=== PATIENT | male | born 1945 | race Caucasian/White ===

== ENCOUNTER 2018-08-11 19:33 | Observation (INO) ==
[2018-08-11] MEDS ORDERED: Ipratropium/Albuterol Neb 3 ML IH ONE (19:49)
[2018-08-11] MEDS ORDERED: methylPREDNISolone 125 MG/2 ML VIAL IVP ONE (19:50)
--- NOTE | 2018-08-11 19:51 | Emergency Department Note ---
Disposition Clinical Impression: COPD exacerbation, Elevated troponin Congestive heart failure Qualifiers: Heart failure type: unspecified Heart failure chronicity: unspecified Qualified Code(s): I50.9 - Heart failure, unspecified Community acquired pneumonia Qualifiers: Laterality: left Lung location: unspecified part of lung Qualified Code(s): J18.9 - Pneumonia, unspecified organism Disposition: Admitted As Inpatient Condition: Fair Referrals: NONE,PCP [Primary Care Provider] - Forms: ED Satisfaction Letter Time of Disposition: 20:37 SOB HPI - General Chief Complaint: ED Shortness of Breath/Dyspnea Stated Complaint: MOISÉS Time Seen by Provider: 08/11/18 19:39 Source: patient Mode of arrival: ambulatory Limitations: no limitations Nursing Notes Reviewed: Yes Vital Signs Reviewed: Yes - History of Present Illness 73-year-old male history of COPD and CHF presents to the emergency department with difficulty breathing. States over the past 2 days worsening shortness of breath especially on exertion. Laying flat makes it worse as well. Denies any chest pain. Reports productive yellow sputum. Denies fever. He is also noted a significant leg swelling past the knee. He was recently evaluated by myself a week ago for right leg swelling and was negative for deep vein thrombosis. He attempted to call his manager ent today but would not be evaluated until later in the week. He admits to smoking still. He does not take a diuretic he reports. He does not wear home oxygen. No history of cardiac ischemic disease. Pt Subjective Complaint: shortness of breath - Related Data Previous Rx's Medication Instructions Recorded Aspirin Enteric Coated [Aspirin EC] 81 mg PO DAILY #30 03/30/17 Azithromycin [Zithromax] 250 mg PO DAILY #5 tablet 07/11/18 Cefuroxime PO [Ceftin] 500 mg PO Q12HR #10 tablet 07/11/18 Lactobacillus [Culturelle] 1 each PO BID #10 cap.sprink 07/11/18 predniSONE [PredniSONE] 10 mg PO BIDWM #10 tablet 07/11/18 Allergies Allergy/AdvReac Type Severity Reaction Status Date / Time No Known Allergies Allergy Verified 11/12/17 19:49 All systems ED: reviewed and negative except as stated. Review of Systems: As Per HPI Constitutional: Denies: fever, chills ENT ED: Denies: congestion Cardiovascular: Denies: chest pain Respiratory: Reports: cough, dyspnea Gastrointestinal: Denies: abdominal pain, nausea, vomiting Genitourinary: Denies: dysuria Musculoskeletal: Denies: back pain Integumentary: Denies: rash, abrasion Neurological: Denies: weakness, numbness, abnormal gait Past Medical History - Past Medical History Attestation: Yes The following information was validated with the patient. Source: patient Medical history: Reports: cancer, CHF, COPD Surgical history: Reports: orthopedic, other, other Psychiatric history: Reports: no psych history - Social History Smoking Status: Current every day smoker Smokeless Tobacco Status: No Alcohol use: Reports: occasionally Drug use: Reports: none Physical Exam - General Limitations: no limitations General appearance: alert, in distress (Conversational dyspnea) - Head Head exam: atraumatic, normocephalic, normal inspection - Eye Eye exam: Present: normal appearance, PERRL, EOMI - ENT ENT exam: normal exam, normal oropharynx, mucous membranes moist - Neck Neck exam: Present: normal inspection, full ROM, trachea midline - Chest Chest inspection: Present: normal inspection, symmetric chest wall rise - Respiratory Respiratory exam: Present: wheezes (Bilateral), prolonged expiratory phase. Absent: respiratory distress - Cardiovascular Cardiovascular exam: Present: normal rhythm, tachycardia, normal heart sounds - Expanded Cardiovascular Exam Peripheral pulses: 2+: radial (R), radial (L) - Abdominal Exam Abdominal exam: Present: soft, Non-Tender, normal bowel sounds. Absent: tenderness, distention, guarding, rebound, rigidity - Extremities Exam Extremities exam: Present: normal inspection, full ROM, pedal edema (Bilateral, right greater than left). Absent: tenderness - Back Exam Back exam: Present: normal inspection, full ROM. Absent: tenderness - Neurological Exam Neurological exam: Present: alert, oriented X3 - Psychiatric Psychiatric exam: Present: normal affect, normal mood - Skin Skin exam: Present: warm, dry, intact, normal color. Absent: rash, cyanosis, diaphoresis Course Course Narrative: Patient presents with difficulty breathing worse of the past 2 days. Reports history of COPD and CHF. On examination he appears in some mild respiratory distress with bilateral wheezing, expiratory. He is tachycardic 111 at 94% on room air. He does not wear home oxygen supplementation. He does have swelling to his legs and was recently evaluated venous Doppler ultrasound, negative. Will Mr. breathing treatments and evaluate for CHF versus COPD. Patient will likely require admission. LE Venous Duplex Patient Name: Praveen Jurado Order Number: [id number] Procedure Date: 08/05/2018 Date: 1945 Age: 73 yrs Gender: Male Location: [facility] Room #: 9 Circulation Man: Gemini Weems Referring MD: DO Sue Mueller MD: Handy Mena MD Primary Indications: Rule out DVT Secondary Indications: Risk Factors Yes/No Anticoagulants No Hx of DVT Yes Hx of Chemotherapy No Recent Surgery No Previous Vascular Surgery No Hormone Replacement Therapy No Impressions: Right lower extremity: normal superficial and deep exam. Recommendations: Test completed on 08/05/2018 at 9:52:38 pm. Critical findings reported to Dr. Ramachandran in person at 9:52:44 pm on 08/05/2018 by Gemini Weems. Findings Venous Duplex Results: Right: Venous imaging of the lower extremity reveals full patency and normal vessel compressibility of the right distal iliac, right common femoral, right superficial femoral, right popliteal, right posterior tibial, right peroneal, right great saphenous and right lesser saphenous. Doppler signals in the evaluated veins were normal. The right peroneal vein was not well visualized. Left: Venous imaging of the lower extremity reveals full patency and normal vessel compressibility of the left common femoral. Doppler signals in the evaluated veins were normal. Prior Study: No prior study available for comparison. Test completed on 08/05/2018 at 9:52:38 pm. Critical findings reported to Dr. Ramachandran in person at 9:52:44 pm on 08/05/2018 by Gemini Weems. - Reevaluation(s) Reevaluation #1: Review of patient's labs, white count 6, lactate 0.9, BNP significantly elevated 1900. Review of his chest x-ray shows left upper lobe opacity concern for possible pneumonia as well as a vascular congestion. Will treat him for COPD exacerbation, likely CHF exacerbation and community acquired pneumonia as he was only hospitalized less than 48 hours. Ceftriaxone and azithromycin. His troponin is elevated at 0.05, suspect likely demand ischemia from his heart failure. Will hold off on heparinization at this time but will give him aspirin. Time: 20:33 - Consultations Consultation #1: Spoke with on-call hospitalist stanislav Waddell to admit for COPD exacerbation, CHF exacerbation, elevated troponin likely demand ischemia, pneumonia. No furthe r orders at this time. He should not appears significantly more comfortable after breathing treatments however continues to be 93% on room air. Time: 21:26 Vital Signs Temperature 98.1 F 08/11/18 19:39 Pulse Rate 111 08/11/18 19:39 Respiratory Rate 20 08/11/18 19:39 Blood Pressure 127/78 08/11/18 19:39 O2 Sat by Pulse Oximetry 94 08/11/18 19:39 Temperature 98.1 F 08/11/18 19:55 Pulse Rate 100 08/11/18 21:17 Respiratory Rate 22 08/11/18 21:17 Blood Pressure 110/74 08/11/18 21:17 O2 Sat by Pulse Oximetry 92 08/11/18 21:17 Oxygen Delivery Oxygen Delivery Room Air Shortness of Breath/Dyspnea - MDM Narrative Medical decision making narrative: Patient was discussed with my attending physician who agrees with ED management and final disposition. They independently evaluated the patient. Please refer to their attestation to this encounter for additional information. This note was generated by [employer] voice recognition software and as a result grammatical or spelling errors may occur using this program. - Medical Records Medical records reviewed: Yes I reviewed the patient's medical records. Review of echocardiogram performed 2016 showed EF 40% - Lab Data Lab results reviewed: Yes I reviewed the patient's lab results. Result diagrams: 08/11/18 19:44 08/11/18 19:44 Lab Results 08/11/18 08/11/18 08/11/18 Range/Units 19:44 19:44 19:44 WBC 6.5 (4.3-11.1) K/mcL RBC 3.93 L (4.19-5.50) M/mcL Hgb 13.3 (12.9-16.9) g/dL Hct 42.1 (37.5-50.1) % MCV 107.1 H (83.0-100.0) fL MCH 33.8 H (28.0-33.3) pg MCHC 31.6 (31.6-35.5) g/dL RDW 15.6 H (11.5-14.5) % Plt Count 225 (140-400) K/mcL MPV 9.6 (9.4-12.4) fL Immature Gran % 0.3 (0-4) % Seg Neutrophils % 78.0 % Lymphocytes % 9.9 % Monocytes % 9.3 % Eosinophils % 2.2 % Basophils % 0.3 % Neutrophils # 5.0 (1.6-8.9) K/mcL Lymphocytes # 0.6 (0.6-4.6) K/mcL Monocytes # 0.6 (0.0-1.3) K/mcL Eosinophils # 0.1 (0.0-0.6) K/mcL Basophils # 0.0 (0.0-0.2) K/mcL Sodium 143 (136-145) mEq/L Potassium 4.5 (3.5-5.1) mEq/L Chloride 108 H (98-107) mEq/L Carbon Dioxide 30 H (23-29) mEq/L BUN 27 H (8-23) mg/dL Creatinine 1.16 (0.70-1.30) mg/dL Est GFR ( Amer) > 60 (> 60) Est GFR (Non-Af Amer) > 60 (> 60) BUN/Creatinine Ratio 23 (6-26) Glucose 97 (70-105) mg/dL Calculated Osmolality 301 H (280-300) Lactic Acid (0.5-2.2) mmol/L Calcium 9.5 (8.6-10.3) mg/dL Troponin I 0.05 H* (< 0.04) ng/mL B-Natriuretic Peptide 1910 H (Less than 100) pg/mL 08/11/18 Range/Units 19:54 WBC (4.3-11.1) K/mcL RBC (4.19-5.50) M/mcL Hgb (12.9-16.9) g/dL Hct (37.5-50.1) % MCV (83.0-100.0) fL MCH (28.0-33.3) pg MCHC (31.6-35.5) g/dL RDW (11.5-14.5) % Plt Count (140-400) K/mcL MPV (9.4-12.4) fL Immature Gran % (0-4) % Seg Neutrophils % % Lymphocytes % % Monocytes % % Eosinophils % % Basophils % % Neutrophils # (1.6-8.9) K/mcL Lymphocytes # (0.6-4.6) K/mcL Monocytes # (0.0-1.3) K/mcL Eosinophils # (0.0-0.6) K/mcL Basophils # (0.0-0.2) K/mcL Sodium (136-145) mEq/L Potassium (3.5-5.1) mEq/L Chloride (98-107) mEq/L Carbon Dioxide (23-29) mEq/L BUN (8-23) mg/dL Creatinine (0.70-1.30) mg/dL Est GFR ( Amer) (> 60) Est GFR (Non-Af Amer) (> 60) BUN/Creatinine Ratio (6-26) Glucose (70-105) mg/dL Calculated Osmolality (280-300) Lactic Acid 0.9 (0.5-2.2) mmol/L Calcium (8.6-10.3) mg/dL Troponin I (< 0.04) ng/mL B-Natriuretic Peptide (Less than 100) pg/mL - Radiology Data Radiology results reviewed: Yes I reviewed the patient's radiology results. Chest X-Ray 08/11/18 19:44 IMPRESSION: 1. Left basilar airspace opacity potentially representing atelectasis, scarring, or pneumonia. 2. Unchanged left upper lobe scarring with traction bronchiectasis. 3. Diffuse interstitial prominence potentially due to pulmonary vascular congestion and/or chronic interstitial change. D/ / Dougie Mckeon MD / Dougie Mckeon MD Interpreting Provider: Dougie Mckeon MD - EKG Data EKG attestation: Yes I reviewed and interpreted this EKG. EKG results narrative: EKG performed 1957 sinus tachycardia 101 beats per minute, normal axis, poor R wave progression, no ST elevation. Compared to prior EKG performed 07/10/2018 which shows similar consistent findings. No acute ischemic changes.
--- NOTE | 2018-08-11 20:12 | Emergency Department Note ---
Disposition Clinical Impression: COPD exacerbation, Elevated troponin Congestive heart failure Qualifiers: Heart failure type: unspecified Heart failure chronicity: unspecified Qualified Code(s): I50.9 - Heart failure, unspecified Community acquired pneumonia Qualifiers: Laterality: left Lung location: unspecified part of lung Qualified Code(s): J18.9 - Pneumonia, unspecified organism Disposition: Admitted As Inpatient Condition: Fair Referrals: NONE,PCP [Primary Care Provider] - Forms: ED Satisfaction Letter General Adult HPI - General Chief complaint: ED Shortness of Breath/Dyspnea Stated complaint: MOISÉS Time Seen by Provider: 08/11/18 19:39 Source: patient Mode of arrival: ambulatory Limitations: no limitations Nursing Notes Reviewed: Yes Vital Signs Reviewed: Yes - History of Present Illness Pain Scale: 4 - Related Data Previous Rx's Medication Instructions Recorded Aspirin Enteric Coated [Aspirin EC] 81 mg PO DAILY #30 03/30/17 Azithromycin [Zithromax] 250 mg PO DAILY #5 tablet 07/11/18 Cefuroxime PO [Ceftin] 500 mg PO Q12HR #10 tablet 07/11/18 Lactobacillus [Culturelle] 1 each PO BID #10 cap.sprink 07/11/18 predniSONE [PredniSONE] 10 mg PO BIDWM #10 tablet 07/11/18 Allergies Allergy/AdvReac Type Severity Reaction Status Date / Time No Known Allergies Allergy Verified 11/12/17 19:49 Constitutional: Denies: fever, chills ENT ED: Denies: congestion Cardiovascular: Denies: chest pain Respiratory: Reports: cough, dyspnea Gastrointestinal: Denies: abdominal pain, nausea, vomiting Genitourinary: Denies: dysuria Musculoskeletal: Denies: back pain Integumentary: Denies: rash, abrasion Neurological: Denies: weakness, numbness, abnormal gait Past Medical History - Past Medical History Medical history: Reports: cancer, CHF, COPD Surgical history: Reports: orthopedic, other, other Psychiatric history: Reports: no psych history - Social History Smoking Status: Current every day smoker Smokeless Tobacco Status: No Alcohol use: Reports: occasionally Drug use: Reports: none Physical Exam - General Limitations: no limitations General appearance: alert, in distress (Conversational dyspnea) Course Vital Signs Temperature 98.1 F 08/11/18 19:39 Pulse Rate 111 08/11/18 19:39 Respiratory Rate 20 08/11/18 19:39 Blood Pressure 127/78 08/11/18 19:39 O2 Sat by Pulse Oximetry 94 08/11/18 19:39 Temperature 98.1 F 08/11/18 19:55 Pulse Rate 100 08/11/18 21:17 Respiratory Rate 22 08/11/18 21:17 Blood Pressure 110/74 08/11/18 21:17 O2 Sat by Pulse Oximetry 92 08/11/18 21:17 Oxygen Delivery Oxygen Delivery Room Air Medical Decision Making - Medical Records Medical records reviewed: Yes I reviewed the patient's medical records. - Lab Data Lab results reviewed: Yes I reviewed the patient's lab results. Result diagrams: 08/11/18 19:44 08/11/18 19:44 Lab Results 08/11/18 08/11/18 08/11/18 Range/Units 19:44 19:44 19:44 WBC 6.5 (4.3-11.1) K/mcL RBC 3.93 L (4.19-5.50) M/mcL Hgb 13.3 (12.9-16.9) g/dL Hct 42.1 (37.5-50.1) % MCV 107.1 H (83.0-100.0) fL MCH 33.8 H (28.0-33.3) pg MCHC 31.6 (31.6-35.5) g/dL RDW 15.6 H (11.5-14.5) % Plt Count 225 (140-400) K/mcL MPV 9.6 (9.4-12.4) fL Immature Gran % 0.3 (0-4) % Seg Neutrophils % 78.0 % Lymphocytes % 9.9 % Monocytes % 9.3 % Eosinophils % 2.2 % Basophils % 0.3 % Neutrophils # 5.0 (1.6-8.9) K/mcL Lymphocytes # 0.6 (0.6-4.6) K/mcL Monocytes # 0.6 (0.0-1.3) K/mcL Eosinophils # 0.1 (0.0-0.6) K/mcL Basophils # 0.0 (0.0-0.2) K/mcL Sodium 143 (136-145) mEq/L Potassium 4.5 (3.5-5.1) mEq/L Chloride 108 H (98-107) mEq/L Carbon Dioxide 30 H (23-29) mEq/L BUN 27 H (8-23) mg/dL Creatinine 1.16 (0.70-1.30) mg/dL Est GFR ( Amer) > 60 (> 60) Est GFR (Non-Af Amer) > 60 (> 60) BUN/Creatinine Ratio 23 (6-26) Glucose 97 (70-105) mg/dL Calculated Osmolality 301 H (280-300) Lactic Acid (0.5-2.2) mmol/L Calcium 9.5 (8.6-10.3) mg/dL Troponin I 0.05 H* (< 0.04) ng/mL B-Natriuretic Peptide 1910 H (Less than 100) pg/mL 08/11/18 Range/Units 19:54 WBC (4.3-11.1) K/mcL RBC (4.19-5.50) M/mcL Hgb (12.9-16.9) g/dL Hct (37.5-50.1) % MCV (83.0-100.0) fL MCH (28.0-33.3) pg MCHC (31.6-35.5) g/dL RDW (11.5-14.5) % Plt Count (140-400) K/mcL MPV (9.4-12.4) fL Immature Gran % (0-4) % Seg Neutrophils % % Lymphocytes % % Monocytes % % Eosinophils % % Basophils % % Neutrophils # (1.6-8.9) K/mcL Lymphocytes # (0.6-4.6) K/mcL Monocytes # (0.0-1.3) K/mcL Eosinophils # (0.0-0.6) K/mcL Basophils # (0.0-0.2) K/mcL Sodium (136-145) mEq/L Potassium (3.5-5.1) mEq/L Chloride (98-107) mEq/L Carbon Dioxide (23-29) mEq/L BUN (8-23) mg/dL Creatinine (0.70-1.30) mg/dL Est GFR ( Amer) (> 60) Est GFR (Non-Af Amer) (> 60) BUN/Creatinine Ratio (6-26) Glucose (70-105) mg/dL Calculated Osmolality (280-300) Lactic Acid 0.9 (0.5-2.2) mmol/L Calcium (8.6-10.3) mg/dL Troponin I (< 0.04) ng/mL B-Natriuretic Peptide (Less than 100) pg/mL - Radiology Data Radiology results reviewed: Yes I reviewed the patient's radiology results. Chest X-Ray 08/11/18 19:44 IMPRESSION: 1. Left basilar airspace opacity potentially representing atelectasis, scarring, or pneumonia. 2. Unchanged left upper lobe scarring with traction bronchiectasis. 3. Diffuse interstitial prominence potentially due to pulmonary vascular congestion and/or chronic interstitial change. D/ / Dougie Mckeon MD / Dougie Mckeon MD Interpreting Provider: Dougie Mckeon MD - EKG Data EKG #1 EKG attestation: Yes I reviewed and interpreted this EKG. EKG results narrative: EKG shows sinus tachycardia with ventricular rate of 101. Intraventricular conduction delay. No acute ST segment elevation or depression. No significant change from prior EKG dated 07/10/2018. Critical Care Time Critical Care Time: Yes Total Critical Care Time: 30 Attestation: Critical care performed: Time is exclusive of separately billable procedures. Time includes: direct patient care, patient reassessment, coordination of patient care, interpretation of data (laboratory data, radiology data, and respiratory data), review of patient's medical records, medical consultation and documentation of patient care. Procedures included in critical care time: Procedures excluded from critical care time: Attestation Statement - Attestation Attestation: I, Conor Jung MD, personally evaluated this patient and discussed their management with the resident physician. I reviewed the resident's note and agree with the documented findings, medical decision making, and plan of care. 73-year-old male with history of COPD and CHF presents to the emergency department with a complaint of increasing shortness of breath over the past 2 days. He has had some increased cough with yellow sputum production. No fever. No chest pain. He is not on home oxygen. He continues to smoke. He complains of increased swelling in both lower extremities, right greater than left. Patient was seen here 6 days ago for swelling in the right leg and had a Doppler ultrasound at that time which was negative for DVT. On examination patient is a well-developed well-nourished elderly male in no acute distress. He is alert and oriented 3. There is no cyanosis or diaphoresis. Breath sounds are decreased bilaterally with some scattered bilateral expiratory wheezes. Also mild bibasilar rales. Heart regular with a mild tachycardia. Abdomen soft and nontender with normal bowel sounds. 2+ pitting edema of the lower extremities bilaterally. EKG shows a sinus tachycardia with ventricular rate of 101. No acute ST segment elevation or depression. No significant change from prior EKG. Chest x-ray shows left basilar atelectasis versus pneumonia as well as pulmonary vascular congestion. Labs reviewed. Troponin 0.05. BNP 1910. Patient received triple DuoNeb treatments and IV Solu-Medrol. He also received IV Lasix. Blood cultures obtained. Rocephin and Zithromax initiated. The hospitalist, Dr. Banks, was consulted and accepted admission of the patient.
[2018-08-11 20:19] LABS: Basophils % 0.3 %; Eosinophils # 0.1 K/mcL (0.0-0.6); Eosinophils % 2.2 %; Hematocrit 42.1 % (37.5-50.1); Hemoglobin 13.3 g/dL (12.9-16.9); Immature Granulocytes % 0.3 % (0-4); Lymphocytes # 0.6 K/mcL (0.6-4.6); Lymphocytes % 9.9 %; Mean Corpuscular HGB Conc 31.6 g/dL (31.6-35.5); Mean Corpuscular Hemoglobin 33.8 pg (28.0-33.3); Mean Corpuscular Volume 107.1 fL (83.0-100.0); Mean Platelet Volume 9.6 fL (9.4-12.4); Monocytes # 0.6 K/mcL (0.0-1.3); Monocytes % 9.3 %; Platelet Count 225 K/mcL (140-400); Red Blood Count 3.93 M/mcL (4.19-5.50); Red Cell Distribution Width 15.6 % (11.5-14.5)
[2018-08-11 20:27] LABS: BUN/Creatinine Ratio 23 (6-26); Blood Urea Nitrogen 27 mg/dL (8-23); Calcium 9.5 mg/dL (8.6-10.3); Carbon Dioxide 30 mEq/L (23-29); Chloride 108 mEq/L (98-107); Glucose 97 mg/dL (70-105); Osmolality,Calculated 301 (280-300); Potassium 4.5 mEq/L (3.5-5.1); Sodium 143 mEq/L (136-145); eGFR For Non-African Americans > 60 (> 60)
[2018-08-11] MEDS ORDERED: Furosemide 20 MG/2 ML VIAL IVP ONE ×2 (20:32→22:33)
[2018-08-11] MEDS ORDERED: Azithromycin 500 MG in D5% in Water 250 ML IVPB ONE (20:32)
[2018-08-11] MEDS ORDERED: cefTRIAXone 1,000 MG in Water for inj. (sterile) 20 ML 10 ML IVP ONE (20:32)
[2018-08-11 20:35] LABS: Troponin I 0.05 ng/mL (< 0.04)
[2018-08-11] MEDS ORDERED: Aspirin 325 MG TABLET PO ONE (20:36)
[2018-08-11] MEDS ORDERED: Ipratropium/Albuterol Neb 3 ML IH PRN (22:35)
--- NOTE | 2018-08-11 23:44 | Internal Med History&Physical ---
Date of Encounter: 08/11/18 Time of Encounter: 23:41 Internal Medicine - H&P: HPI Chief complaint: leg swelling Admitted From: Home Plans for Post Hospital Care: Home History of present illness: Praveen Jurado is a 73 year old woman with COPD who continues to smoke half a pack daily and has a history of lymphoma s/p chemo/radiation therapy with the complication of heart failure and localized lung fibrosis (biopsy confirmed). He presented to the ER 6 days ago with the complaint of swelling in his right leg; he was evaluated for DVT with duplex ultrasonography and found negative. He went home where he states his other leg started to swell and the swelling in both legs increased to his thighs. He also reported associated shortness of breath. He was seen to have decreased breath sounds bilaterally and mild expiratory wheezing. X-ray was depictive of pulmonary vascular congestion. He received steroids, nebulizer therapy and furosemide with significant improvement in his symptoms. He had a troponin of 0.05 and a BNP of 1910. He is admitted for further observation. Past Med Surg Social Fam HX - Past Medical History Medical history: cancer, CHF, COPD Additional medical history: Lyphoma cancer. Psychiatric history: no psych history - Past Surgical History Surgical History: orthopedic, other, other Additional surgical history: cervicle spine sx (steel plates, removed 4th vertibra) - Social History Smoking Status: Current every day smoker Packs per day: 0.5 Smokeless Tobacco Status: No Alcohol use: occasionally Drug use: none - Family History Father Adopted: No Family Member Ethnicity: Non- Living Status: Hx Family Cardiac Disorders: Yes Hx Family Respiratory Disorders: Yes Hx Family Cancer: Yes Hx Family GI Disorders: No Hx Family Endocrine Disorder: No Hx Family Neuromuscular Disorders: No Hx Family Neurologic Disorders: No Hx Family HEENT Disorders: No Hx Family Autoimmune Disorders: No Internal Medicine - H&P: Meds Aspirin Enteric Coated [Aspirin EC] 81 mg PO DAILY #30 03/30/17 [Rx] Lisinopril [Zestril] 2.5 mg PO DAILY 08/11/18 [History] Allergy/AdvReac Type Severity Reaction Status Date / Time No Known Allergies Allergy Verified 11/12/17 19:49 All Systems PM: A 10-system review of systems was performed and is negative for pertinent findings except as documented above in the HPI. - Constitutional Vitals: Temp Pulse Resp BP Pulse Ox 98.6 F 108 16 102/70 91 08/11/18 22:52 08/11/18 22:52 08/11/18 22:52 08/11/18 22:52 08/11/18 22:52 Exam: Vitals: Reviewed General: NAD, well-developed. Skin: Warm, dry. HEENT: Moist mucous membranes. No conjunctivae pallor. Neck: No lymphadenopathy. (+) JVD. Chest: Diminished thoracic expansion. Rales in both lung bases and some expiratory wheezes in the right upper lung field. Heart: Normal S1 & S2; rhythmic. Abdomen: Non-distended, soft and non-tender to palpation. No peritoneal reaction. Extremities: 3+ pitting edema of both legs. Neurological: Awake, alert and oriented to person, place and time. No focal deficits. Psych: Affect appropriate. Internal Med - H&P Results - Labs CBC & Chem 7: 08/11/18 19:44 08/11/18 19:44 Labs: Short CBC 08/11/18 Range/Units 19:44 WBC 6.5 (4.3-11.1) K/mcL Hgb 13.3 (12.9-16.9) g/dL Hct 42.1 (37.5-50.1) % Plt Count 225 (140-400) K/mcL Neutrophils # 5.0 (1.6-8.9) K/mcL BMP 08/11/18 19:44 Sodium 143 Potassium 4.5 Chloride 108 H Carbon Dioxide 30 H BUN 27 H Creatinine 1.16 Glucose 97 Calcium 9.5 Cardiac Enzymes 08/11/18 Range/Units 19:44 Troponin I 0.05 H* (< 0.04) ng/mL - Impressions ITS Impressions Chest X-Ray 08/11/18 19:44 IMPRESSION: 1. Left basilar airspace opacity potentially representing atelectasis, scarring, or pneumonia. 2. Unchanged left upper lobe scarring with traction bronchiectasis. 3. Diffuse interstitial prominence potentially due to pulmonary vascular congestion and/or chronic interstitial change. D/ / Dougie Mckeon MD / Dougie Mckeon MD Interpreting Provider: Dougie Mckeon MD - Assessment and plan (1) Congestive heart failure Current Visit: Yes Status: Acute Assessment and plan: The patient has increasing pedal edema, shortness of breath and reduction in exercise tolerance coupled with a BNP of ~1900. Will give a total of 40mg furosemide tonight and continue with 20mg BID as of tomorrow. Check TTE. Start beta blockers once euvolemic. Continue ACEI and aspirin. Telemetry monitoring. Strict I/O. Qualifiers: Heart failure type: unspecified Heart failure chronicity: acute on chronic Qualified Code(s): I50.9 - Heart failure, unspecified (2) Elevated troponin Current Visit: Yes Status: Acute Assessment and plan: Likely secondary to myocardial strain in the setting of acute heart failure. Will monitor on telemetry and repeat level. (3) COPD exacerbation Current Visit: Yes Status: Acute Assessment and plan: Possibly associated but does not appear significant. Will keep on nebulizer therapy prn. Has received steroids. (4) Lung mass Current Visit: Yes Status: Acute Assessment and plan: Noted on x-ray today and unchanged in comparison to prior images. This was biopsied in 2014 due to concern that it may have been malignant however it was seen to be fibrotic likely secondary to radiation. (5) DVT prophylaxis Current Visit: Yes Status: Acute Assessment and plan: SubQ heparin ordered. - Time Spent With Patient Total time spent is greater than 50% in coordination of care (as documented) at patient's floor/unit and/or counseling patient: Greater than 35 minutes
[2018-08-12] MEDS: *HR* Heparin 5,000 UNIT/ML VIAL SQ SCH ×3 (05:29→22:40)
[2018-08-12] MEDS ORDERED: Furosemide 20 MG/2 ML VIAL IVP SCH (08:00)
[2018-08-12] MEDS: Aspirin Enteric Coated 81 MG Tablet PO SCH (09:34)
[2018-08-12] MEDS: Furosemide 40 MG/4 ML VIAL IVP SCH (16:44)
--- NOTE | 2018-08-12 18:44 | Internal Med Progress Note ---
Hospitalist Progress Note - Encounter Date of Encounter: 08/12/18 Time of Encounter: 18:00 - Subjective Interval History: SUBJECTIVE: The patient feels good. His difficulty breathing subsided. He is on 2 L/min nasal cannula oxygen. He continues to have significant swelling of her lower legsright more than left. Denies abdominal pain, nausea and vomiting. He makes good amounts of urine. OBJECTIVE: Skin: Free of rash and discoloration. ENMT: Oral/pharyngeal mucosa is normal in appearance. Eyes: Sclera is white. There is no discharge from eyes. Respiratory: Normal breath sounds; no crackles or wheezes. CV: Heart is regular; no gallop or murmur. There is moderate swelling of lower legsright more than left. GI: Abdomen is soft and not tender. There is no palpable mass or visceromegaly. Neuro: There is no focal deficits. ADDITIONAL DATA: Chest x-ray done at admission showed diffuse interstitial prominence, potentially due to pulmonary vascular congestion and/or chronic interstitial change. CBC shows normal hemoglobin and WBC count. MCV is 107. He has normal electrolytes. Creatinine is 1.16. BNP is 1910. ASSESSMENT AND PLAN: Acute on chronic systolic heart failure. His last echocardiogram from 03/30/17 showed ejection fraction of 40-45%. With a global left ventricular systolic dysfunction. With moderately dilated left atrium and right atrium. I will keep him on twice a day IV Lasix. I will put his lisinopril on hold. Th e patient was advised to follow fluid restriction of 1800 mL per day. He might have mild COPD exacerbation. I will continue when necessary and nebulizer treatments with DuoNeb. He had slightly elevated troponin admission. Likely secondary to decompensated CHF. History of lymphoma. There is no evidence for active disease at this time. - Exam Vitals: Temp Pulse Resp BP Pulse Ox 98 F 91 20 96/57 97 08/12/18 17:11 08/12/18 17:11 08/12/18 17:11 08/12/18 17:11 08/12/18 17:11 Exam: xx - Assessment and Plan (1) Acute on chronic systolic heart failure Current Visit: Yes Status: Acute (2) COPD exacerbation Current Visit: Yes Status: Acute (3) Elevated troponin Current Visit: Yes Status: Acute (4) Hx of lymphoma Current Visit: Yes Status: Chronic - Time Spent with Patient Total time spent is greater than 50% in coordination of care (as documented) at patient's floor/unit and/or counseling patient: 25 - 35 minutes Plan of Care Discussed with: patient Internal Medicine: Result - Labs CBC & Chem 7: 08/11/18 19:44 08/11/18 19:44 Labs: Short CBC 08/11/18 Range/Units 19:44 WBC 6.5 (4.3-11.1) K/mcL Hgb 13.3 (12.9-16.9) g/dL Hct 42.1 (37.5-50.1) % Plt Count 225 (140-400) K/mcL Neutrophils # 5.0 (1.6-8.9) K/mcL BMP 08/11/18 19:44 Sodium 143 Potassium 4.5 Chloride 108 H Carbon Dioxide 30 H BUN 27 H Creatinine 1.16 Glucose 97 Calcium 9.5 Cardiac Enzymes 08/11/18 08/12/18 Range/Units 19:44 06:07 Troponin I 0.05 H* 0.03 (< 0.04) ng/mL - Impressions Impressions Chest X-Ray 08/11/18 19:44 IMPRESSION: 1. Left basilar airspace opacity potentially representing atelectasis, scarring, or pneumonia. 2. Unchanged left upper lobe scarring with traction bronchiectasis. 3. Diffuse interstitial prominence potentially due to pulmonary vascular congestion and/or chronic interstitial change. D/ / Dougie Mckeon MD / Dougie Mckeon MD Interpreting Provider: Dougie Mckeon MD Echocardiogram 08/12/18 22:35 Impressions: LVEF 35-40%. Normal LV chamber size, wall thickness. Global left ventricular systolic dysfunction. Moderate left ventricular diastolic dysfunction. Normal right ventricular structure and function. Mild mitral regurgitation. Moderate-severe tricuspid regurgitation. Mild-moderate pulmonary hypertension. Estimated RVSP is 46 mmHg. Left Ventricular Wall Motion: Rest Echo Findings The apex, apical inferior, mid inferior, basal inferior, apical anterior, mid anterior, basal anterior, apical septal, mid inferior septal, basal inferior septal, apical lateral, mid anterior lateral, basal anterior lateral, mid anterior septal, mid inferior lateral, basal anterior septal and basal inferior lateral padilla were hypokinetic. Findings: Study Quality * Technically adequate exam. ECG Findings * Normal sinus rhythm. Left Ventricle * LVEF 35-40%. * Normal LV chamber size, wall thickness. * Global left ventricular systolic dysfunction. * Moderate left ventricular diastolic dysfunction. Right Ventricle * Normal right ventricular structure and function. Left Atrium * Moderately dilated left atrium. Right Atrium * Moderately dilated right atrium. Aortic Valve * Aortic valve not well visualized. * In some views, the leaflets appear mildly calcified. * Trace aortic regurgitation. * No aortic stenosis. Mitral Valve * Mildly thickened mitral valve leaflets. * Mild mitral regurgitation. * No mitral stenosis. Tricuspid Valve * Normal tricuspid valve structure. * Moderate-severe tricuspid regurgitation. * Mild-moderate pulmonary hypertension. * Estimated RVSP is 46 mmHg. * Estimated RA pressure is 5 mmHg. Pulmonic Valve * Pulmonic valve is not well visualized. Aorta * Normally sized aortic root. Pericardium * There is a trivial pericardial effusion present. IVC * Normal IVC dimensions and inspiratory collapse. Pulmonary Artery * Pulmonary artery not well visualized. Consult Discharge Plan - Plan Referrals: NONE,PCP [Primary Care Provider] -
[2018-08-13] MEDS: *HR* Heparin 5,000 UNIT/ML VIAL SQ SCH ×3 (05:26→22:33)
[2018-08-13 06:43] LABS: BUN/Creatinine Ratio 26 (6-26); Blood Urea Nitrogen 32 mg/dL (8-23); Calcium 8.8 mg/dL (8.6-10.3); Carbon Dioxide 33 mEq/L (23-29); Chloride 102 mEq/L (98-107); Glucose 108 mg/dL (70-105); Magnesium 1.7 mg/dL (1.6-2.6); Osmolality,Calculated 299 (280-300); Potassium 4.4 mEq/L (3.5-5.1); Sodium 141 mEq/L (136-145); eGFR For Non-African Americans 58 (> 60)
[2018-08-13] MEDS: Aspirin Enteric Coated 81 MG Tablet PO SCH (10:43)
[2018-08-13] MEDS: Furosemide 40 MG/4 ML VIAL IVP SCH ×2 (10:43→17:54)
--- NOTE | 2018-08-13 15:17 | Internal Med Progress Note ---
Hospitalist Progress Note - Encounter Date of Encounter: 08/13/18 Time of Encounter: 15:00 - Subjective Interval History: SUBJECTIVE: The patient feels good. His difficulty breathing subsided. He is on 2 L/min nasal cannula oxygen. Was not using oxygen at home. Swelling of his legs is significantly decreased in intensity. Right leg is more swollen than the left one. Denies abdominal pain, nausea and vomiting. He makes good amounts of urine. OBJECTIVE: Skin: Free of rash and discoloration. ENMT: Oral/pharyngeal mucosa is normal in appearance. Eyes: Sclera is white. There is no discharge from eyes. Respiratory: Normal breath sounds; no crackles or wheezes. CV: Heart is regular; no gallop or murmur. There is moderate swelling of lower legsright more than left. GI: Abdomen is soft and not tender. There is no palpable mass or visceromegaly. Neuro: There is no focal deficits. ADDITIONAL DATA: Chest x-ray done at admission showed diffuse interstitial prominence, potentially due to pulmonary vascular congestion and/or chronic interstitial change. Venous duplex of legs done on 08/05/18 showed normal findings. Echocardiogram from 03/30/17 showed LVEF of 40-45%. With moderately dilated left atrium and right atrium. Electrolytes are showing bicarb of 33 (30 at admission). Creatinine is 1.22; 1.16 at admission. ASSESSMENT AND PLAN: Acute on chronic systolic heart failure. Better. I will continue IV Lasix. By mouth Lozol will be added. Fluid restriction of 1800 cc per day. He might have mild COPD exacerbation. I will continue when necessary nebulizer treatments with DuoNeb and supplemental oxygen. He had slightly elevated troponin admission. Likely secondary to decompensated CHF. History of lymphoma. There is no evidence for active disease at this time. Disposition: I anticipate his discharge home tomorrow. - Exam Vitals: Temp Pulse Resp BP Pulse Ox 97.7 F 97 20 105/74 98 08/13/18 12:51 08/13/18 12:51 08/13/18 12:51 08/13/18 12:51 08/13/18 12:51 Exam: xx - Assessment and Plan (1) Acute on chronic systolic heart failure Current Visit: Yes Status: Acute (2) COPD exacerbation Current Visit: Yes Status: Acute (3) Elevated troponin Current Visit: Yes Status: Acute (4) Hx of lymphoma Current Visit: Yes Status: Chronic - Time Spent with Patient Total time spent is greater than 50% in coordination of care (as documented) at patient's floor/unit and/or counseling patient: 25 - 35 minutes Plan of Care Discussed with: patient Internal Medicine: Result - Labs CBC & Chem 7: 08/11/18 19:44 08/13/18 06:10 Labs: BMP 08/13/18 06:10 Sodium 141 Potassium 4.4 Chloride 102 Carbon Dioxide 33 H BUN 32 H Creatinine 1.22 Glucose 108 H Calcium 8.8 Consult Discharge Plan - Plan Referrals: NONE,PCP [Primary Care Provider] -
[2018-08-14] MEDS: *HR* Heparin 5,000 UNIT/ML VIAL SQ SCH (05:36)
[2018-08-14 05:55] LABS: BUN/Creatinine Ratio 26 (6-26); Blood Urea Nitrogen 30 mg/dL (8-23); Calcium 8.9 mg/dL (8.6-10.3); Carbon Dioxide 38 mEq/L (23-29); Chloride 97 mEq/L (98-107); Glucose 105 mg/dL (70-105); Osmolality,Calculated 299 (280-300); Potassium 3.9 mEq/L (3.5-5.1); Sodium 141 mEq/L (136-145); eGFR For Non-African Americans > 60 (> 60)
[2018-08-14 07:13] VITALS: BP 99/60
[2018-08-14] MEDS: Furosemide 40 MG/4 ML VIAL IVP SCH (08:14)
[2018-08-14] MEDS: Aspirin Enteric Coated 81 MG Tablet PO SCH (08:15)
--- NOTE | 2018-08-14 10:09 | Discharge Summary ---
- NOTES TO OUTPATIENT PROVIDER Notes to Outpatient Provider: [place] RESTR/RECLINER/DIURETIC (LOZOL WITH LASIX -- MONITOR LYTES/ADJUST DOSE, IF NEEDED) Orders not resulted at time of discharge: Pending orders 08/11/18 19:54 Culture,Blood [BC] Stat Date of Encounter: 08/14/18 Time of Encounter: 10:00 - Discharge Diagnosis (1) Acute on chronic systolic heart failure Priority: Primary Status: Acute (2) COPD exacerbation Priority: Secondary Status: Acute (3) Elevated troponin Priority: Secondary Status: Acute (4) Hx of lymphoma Priority: Secondary Status: Chronic Hospital course: HOSPITAL COURSE: The patient is a 73-year-old male. He has underlying systolic heart failure with ejection fraction of 40-45%. We admitted him with her progressing dyspnea as well as swelling of lower legs (right greater than left). Chest x-ray showed mild pulmonary congestion. His BNP was 1910. Venous duplex of lower extremities did not find any abnormalities. We treated him for acute on chronic systolic heart failure. He was on IV Lasix; I added Lozol on the very last day of his hospitalization. Is resting dyspnea subsided. He has significantly decreased swelling of his lower legs/feet. It remains mild/moderate. CONDITION AT DISCHARGE: The patient feels good. Denies chest pain. Denies resting dyspnea; on room her oxygen. He does have dyspnea on exertion. Denies coughing and wheezing. Skin: Free of rash and discoloration. Respiratory: Normal breath sounds with no crackles and wheezes bilaterally. CV: Heart is regular with no gallop or murmur. GI: Abdomen is flat and soft with no palpable mass or visceromegaly. Neuro exam: There is no focal deficits. Normal speech, swallowing and gait. SEE DISCHARGE ORDERS/MEDICATIONS He will be taking Lozol and her Lasix at home. I advised him to keep fluid restriction of 9611-6252 mL per day. He needs to use a recliner, when sitting longer. BMP and magnesium to be checked in about 1 week. Discharge discussed with: patient Time spent discussing smoking cessation with patient: 3 to 10 minutes - Time Spent with Patient Total time spent providing and/or coordinating discharge services: Greater than 30 minutes (40 minutes...) - Discharge Medications Prescriptions: Furosemide [Lasix] 40 mg PO QAM #30 tablet Indapamide [Lozol] 2.5 mg PO QAM #30 tablet Home Medications: Aspirin Enteric Coated [Aspirin EC] 81 mg PO DAILY #30 03/30/17 [Rx] Lisinopril [Zestril] 2.5 mg PO DAILY 08/11/18 [History] Furosemide [Lasix] 40 mg PO QAM #30 tablet 08/14/18 [Rx] Indapamide [Lozol] 2.5 mg PO QAM #30 tablet 08/14/18 [Rx] Allergies/Adverse Reactions: Allergy/AdvReac Type Severity Reaction Status Date / Time No Known Allergies Allergy Verified 08/13/18 10:46 Date of admission: 08/11/18 21:43 Primary care physician: PCP NONE Discharging clinician: Darren Troy Anticipated date of discharge: 08/14/18 - Constitutional Vitals: Temp Pulse Resp BP Pulse Ox 97.9 F 99 16 99/60 96 08/14/18 07:10 08/14/18 07:10 08/14/18 07:10 08/14/18 07:10 08/14/18 07:10 General appearance: Present: A&O X 3, no acute distress, answers questions appropriately Exam: xx - Patient Status Disposition: Home, Self-Care Condition: Fair Functional capacity at discharge: independent ambulation Overall status at discharge: patient is back to baseline - Ambulatory Orders Ambulatory Orders: Basic Metabolic Panel [CHEM] Time Frame: 08/21/18, Facility: [facility], Location: [facility] Magnesium [CHEM] Time Frame: 08/21/18, Facility: [facility], Location: [facility] - Discharge Instructions Instructions: Heart Failure (DC), Chronic Obstructive Pulmonary Disease (DC), Pneumonia (DC) Follow Up With: Pepe Tate [Partnered Physician] - 08/17/18 12:50 pm (Please follow up as schedule...) NONE,PCP [Primary Care Provider] - Additional Instructions: BMP AND MG -- IN ABOUT 1 WEEK... - Diet and Activity Activity: increase activity as tolerated Diet: low fat, low cholesterol (FLUID RESTRICTION OF 0085-1601 ML PER DAY) - VTE Deep Vein Thrombosis/Pulmonary Embolism Present on Admission: No
--- NOTE | 2018-08-14 16:39 | Electrocardiograph Report ---
[address] [place], [place] [address] Test Date: 2018-08-11 Pat Name: Praveen Jurado Department: [id number] Room: 2A Gender: M [employer]: : 1945 Requested By: Ang Ramachandran Order Number: [id number] Reading MD: Tawny Casillas Measurements Intervals Frost Rate: 101 P: 85 NC: 157 QRS: -5 QRSD: 115 T: 109 QT: 370 QTc: 480 Interpretive Statements Sinus tachycardia with ventricular premature complex Nonspecific intraventricular conduction delay ST-T abnormalities, consider ischemia Electronically Signed On 08-14-2018 16:37:23 EST by Tawny Casillas
== END 2018-08-14 11:26 | disposition home or self-care (01) ==
LOC: 2ANU 19:33 → EMEROOARM 19:33 → 2ANU 22:23
PROVIDERS: ADMIT Internal Medicine; ATTEND Internal Medicine

== ENCOUNTER 2018-11-05 23:02 | Observation (INO) ==
[2018-11-06] MEDS ORDERED: Furosemide 40 MG in 0.9 % Sodium Chloride 50 ML IV STA (00:52)
[2018-11-06] MEDS ORDERED: methylPREDNISolone 125 MG/2 ML VIAL IVP ONE (00:52)
[2018-11-06] MEDS ORDERED: Ipratropium/Albuterol Neb 3 ML IH ONE (00:52)
[2018-11-06 01:12] LABS: Basophils % 0.3 %; Eosinophils # 0.2 K/mcL (0.0-0.6); Eosinophils % 2.1 %; Hematocrit 39.9 % (37.5-50.1); Hemoglobin 12.9 g/dL (12.9-16.9); Immature Granulocytes % 0.3 % (0-4); Lymphocytes # 0.7 K/mcL (0.6-4.6); Lymphocytes % 8.9 %; Mean Corpuscular HGB Conc 32.3 g/dL (31.6-35.5); Mean Corpuscular Volume 108.1 fL (83.0-100.0); Mean Platelet Volume 10.2 fL (9.4-12.4); Monocytes # 0.8 K/mcL (0.0-1.3); Monocytes % 10.3 %; Neutrophils # 5.9 K/mcL (1.6-8.9); Platelet Count 177 K/mcL (140-400); Red Blood Count 3.69 M/mcL (4.19-5.50); Red Cell Distribution Width 16.6 % (11.5-14.5); Segmented Neutrophils % 78.1 %
--- NOTE | 2018-11-06 01:22 | Emergency Department Note ---
Disposition Clinical Impression: Acute exacerbation of chronic obstructive airways disease, Acute on chronic systolic heart failure Disposition: Admitted As Inpatient Condition: Fair Referrals: NONE,PCP [Primary Care Provider] - Forms: ED Satisfaction Letter Time of Disposition: 03:16 SOB HPI - General Chief Complaint: ED Shortness of Breath/Dyspnea Stated Complaint: SOB Time Seen by Provider: 11/06/18 00:43 Source: patient Mode of arrival: ambulatory Limitations: no limitations Nursing Notes Reviewed: Yes Vital Signs Reviewed: Yes - History of Present Illness 73-year-old male presents to the emergency department with history of CHF, COPD for shortness of breath as well as bilateral leg swelling. Patient states he does take Lasix 40 mg daily said he has been taking regularly but noticed today started having a little more swelling in his legs bilaterally. He also notes that he became short of breath over the last couple days as well he does have inhalers at home does not have oxygen but still does smoke 1 pack of cigarettes per day. He is not complaining chest pain or any pain anywhere else. He said he does have this happen occasionally and he normally just needs Lasix and can feel better. His breathing has gotten worse he believes that is secondary to pollen coming out and since he does have bad allergies and this does worsen his COPD whenever this occurs. Otherwise patient is no other complaints including fevers, chills, nausea, vomiting, headache, blurry vision, neck pain, back pain, chest pain, abdominal pain, changes in bowel movements, pain with urination, pain or tingling going down the arms or legs or generalized weakness - Related Data Home Medications Medication Instructions Recorded Confirmed Lisinopril [Zestril] 2.5 mg PO DAILY 08/11/18 Previous Rx's Medication Instructions Recorded Aspirin Enteric Coated [Aspirin EC] 81 mg PO DAILY #30 03/30/17 Furosemide [Lasix] 40 mg PO QAM #30 tablet 08/14/18 Indapamide [Lozol] 2.5 mg PO QAM #30 tablet 08/14/18 Allergies Allergy/AdvReac Type Severity Reaction Status Date / Time No Known Allergies Allergy Verified 11/05/18 23:10 All systems ED: reviewed and negative except as stated. Review of Systems: As Per HPI Past Medical History - Past Medical History Attestation: Yes The following information was validated with the patient. Source: patient Medical history: Reports: cancer, CHF, COPD Surgical history: Reports: orthopedic, other, other Psychiatric history: Reports: no psych history - Social History Smoking Status: Current every day smoker Smokeless Tobacco Status: No Alcohol use: Reports: occasionally Drug use: Reports: none Physical Exam - General Limitations: no limitations General appearance: alert - Head Head exam: atraumatic, normocephalic, normal inspection - Eye Eye exam: Present: normal appearance, PERRL, EOMI - ENT ENT exam: normal exam, normal oropharynx, mucous membranes moist - Neck Neck exam: Present: normal inspection, full ROM, trachea midline - Chest Chest inspection: Present: normal inspection, symmetric chest wall rise - Respiratory Respiratory exam: Present: wheezes (Very tight with minimal air movement well breathing.). Absent: respiratory distress, stridor, accessory muscle use, prolonged expiratory phase - Cardiovascular Cardiovascular exam: Present: regular rate, normal rhythm, normal heart sounds - Abdominal Exam Abdominal exam: Present: soft, Non-Tender, normal bowel sounds. Absent: tenderness, distention, guarding, rebound, rigidity - Back Exam Back exam: Present: normal inspection, full ROM. Absent: tenderness, CVA tenderness (R), CVA tenderness (L) - Neurological Exam Neurological exam: Present: alert, oriented X3 - Skin Skin exam: Present: warm, dry, intact, normal color Course Course Narrative: We will get basic labs including CBC BMP troponin and BNP. We will also get x- ray and EKG.. We will give patient 40 mg IV Lasix and reevaluate. We will also give patient steroids and triple DuoNeb treatment. Disposition pending results and reevaluation. Vital Signs Temperature 97.4 F L 11/05/18 23:10 Pulse Rate 104 11/05/18 23:10 Respiratory Rate 23 11/05/18 23:10 Blood Pressure 111/66 11/05/18 23:10 O2 Sat by Pulse Oximetry 89 11/05/18 23:10 Temperature 97.4 F L 11/05/18 23:10 Pulse Rate 100 11/06/18 02:00 Respiratory Rate 25 11/06/18 02:00 Blood Pressure 110/82 11/06/18 02:00 O2 Sat by Pulse Oximetry 97 11/06/18 02:00 Oxygen Delivery Oxygen Delivery Nasal Cannula Shortness of Breath/Dyspnea - [facility] Narrative Medical decision making narrative: 73-year-old male presented here with shortness of breath and pedal swelling. Patient had an elevated BNP as well as pulmonary edema as well as pleural effusions bilaterally this most likely secondary to CHF exacerbation per patient given 40 mg of IV Lasix to help with diuresis. Patient also given DuoNeb's as he was having shortness of breath. Patient was very tight on exam afterwards she was wheezing much better but the tightness had subsided. Patient most likely are also has an acute COPD exacerbation on top of CHF exacerbation. Due to having both these we feel patient needs to be admitted for further evaluation. I spoke with the patient he also agrees with this plan. Spoke with Dr. Hendrix and he agrees to admit the patient to their service. Patient is admitted in stable condition. Chest X-Ray 11/05/18 23:14 IMPRESSION: Mild pulmonary edema with small right pleural effusion. Superimposed infection could be present in the appropriate context. Stable left upper lung volume loss and consolidation. D/ / Thong Acosta / Thong Acosta Interpreting Provider: Thong Acosta - Medical Records Medical records reviewed: Yes I reviewed the patient's medical records. - Lab Data Lab results reviewed: Yes I reviewed the patient's lab results. Result diagrams: 11/06/18 00:43 11/06/18 00:43 Lab Results 11/06/18 11/06/18 11/06/18 Range/Units 00:43 00:43 00:43 WBC 7.6 (4.3-11.1) K/mcL RBC 3.69 L (4.19-5.50) M/mcL Hgb 12.9 (12.9-16.9) g/dL Hct 39.9 (37.5-50.1) % MCV 108.1 H (83.0-100.0) fL MCH 35.0 H (28.0-33.3) pg MCHC 32.3 (31.6-35.5) g/dL RDW 16.6 H (11.5-14.5) % Plt Count 177 (140-400) K/mcL MPV 10.2 (9.4-12.4) fL Immature Gran % 0.3 (0-4) % Seg Neutrophils % 78.1 % Lymphocytes % 8.9 % Monocytes % 10.3 % Eosinophils % 2.1 % Basophils % 0.3 % Neutrophils # 5.9 (1.6-8.9) K/mcL Lymphocytes # 0.7 (0.6-4.6) K/mcL Monocytes # 0.8 (0.0-1.3) K/mcL Eosinophils # 0.2 (0.0-0.6) K/mcL Basophils # 0.0 (0.0-0.2) K/mcL Sodium 143 (136-145) mEq/L Potassium 4.0 (3.5-5.1) mEq/L Chloride 105 (98-107) mEq/L Carbon Dioxide 30 H (23-29) mEq/L BUN 26 H (8-23) mg/dL Creatinine 1.25 (0.70-1.30) mg/dL Est GFR ( Amer) > 60 (> 60) Est GFR (Non-Af Amer) 56 L (> 60) BUN/Creatinine Ratio 21 (6-26) Glucose 104 (70-105) mg/dL Calculated Osmolality 301 H (280-300) Lactic Acid 0.8 (0.5-2.2) mmol/L Calcium 9.3 (8.6-10.3) mg/dL Troponin I 0.05 H* (< 0.04) ng/mL B-Natriuretic Peptide (Less than 100) pg/mL 11/06/18 Range/Units 00:43 WBC (4.3-11.1) K/mcL RBC (4.19-5.50) M/mcL Hgb (12.9-16.9) g/dL Hct (37.5-50.1) % MCV (83.0-100.0) fL MCH (28.0-33.3) pg MCHC (31.6-35.5) g/dL RDW (11.5-14.5) % Plt Count (140-400) K/mcL MPV (9.4-12.4) fL Immature Gran % (0-4) % Seg Neutrophils % % Lymphocytes % % Monocytes % % Eosinophils % % Basophils % % Neutrophils # (1.6-8.9) K/mcL Lymphocytes # (0.6-4.6) K/mcL Monocytes # (0.0-1.3) K/mcL Eosinophils # (0.0-0.6) K/mcL Basophils # (0.0-0.2) K/mcL Sodium (136-145) mEq/L Potassium (3.5-5.1) mEq/L Chloride (98-107) mEq/L Carbon Dioxide (23-29) mEq/L BUN (8-23) mg/dL Creatinine (0.70-1.30) mg/dL Est GFR ( Amer) (> 60) Est GFR (Non-Af Amer) (> 60) BUN/Creatinine Ratio (6-26) Glucose (70-105) mg/dL Calculated Osmolality (280-300) Lactic Acid (0.5-2.2) mmol/L Calcium (8.6-10.3) mg/dL Troponin I (< 0.04) ng/mL B-Natriuretic Peptide 2516 H (Less than 100) pg/mL - Radiology Data Radiology results reviewed: Yes I reviewed the patient's radiology results. - EKG Data EKG attestation: Yes I reviewed and interpreted this EKG. EKG results narrative: EKG done at 00 51 review myself and the attending shows sinus tachycardia rate of 102, NC 152, QRS 118, QTC 502. There is no acute ST changes no acute T-wave changes no other signs of ischemia. There is LVH no other signs of hypertrophy. No signs of heart strain or heart block. No WPW/Brugada/HOCM. EKG unchanged when compared with old one done 08/11/18
[2018-11-06 01:31] LABS: BUN/Creatinine Ratio 21 (6-26); Blood Urea Nitrogen 26 mg/dL (8-23); Calcium 9.3 mg/dL (8.6-10.3); Carbon Dioxide 30 mEq/L (23-29); Chloride 105 mEq/L (98-107); Glucose 104 mg/dL (70-105); Osmolality,Calculated 301 (280-300); Sodium 143 mEq/L (136-145); eGFR For Non-African Americans 56 (> 60)
[2018-11-06 01:33] LABS: Troponin I 0.05 ng/mL (< 0.04)
--- NOTE | 2018-11-06 04:12 | Internal Med History&Physical ---
Date of Encounter: 11/06/18 Time of Encounter: 04:10 Internal Medicine - H&P: HPI Chief complaint: SOB Admitted From: Home Plans for Post Hospital Care: Home History of present illness: Praveen Jurado is a 73 year old woman with COPD who continues to smoke half a pack daily and has a history of lymphoma s/p chemo/radiation therapy with the complication of heart failure and localized lung fibrosis (biopsy confirmed). He presents to the ER with complaints of shortness of breath over the past 3-4 days as well as increasing bilateral leg swelling. He continues to smoke. He had significant wheezing on exam so was given IV steroids and nebulizer therapy as well as 40mg furosemide. He is admitted for further care. Vitals: Reviewed General: NAD, well-developed. Skin: Warm, dry. HEENT: Moist mucous membranes. No conjunctivae pallor. Neck: No lymphadenopathy. (+) JVD. Chest: Diminished thoracic expansion. Diminished breath sounds in the SAM[place]IA, rales in both lung bases and some expiratory wheezes in both lung gaona. Heart: Normal S1 & S2; rhythmic. Abdomen: Non-distended, soft and non-tender to palpation. No peritoneal reaction. Extremities: 3+ pitting edema of both legs. Neurological: Awake, alert and oriented to person, place and time. No focal deficits. Psych: Affect appropriate. Assessment/Plan (1) Acute on chronic systolic heart failure Current Visit: Yes Status: Acute The patient has increasing pedal edema, shortness of breath and reduction in exercise tolerance coupled with a BNP of >2000. Will give a total of 40mg furosemide tonight and continue with 40mg BID as of tomorrow. Start beta blockers once euvolemic. Continue ACEI and aspirin. Telemetry monitoring. Strict I/O. (2) Elevated troponin Likely secondary to myocardial strain in the setting of acute heart failure. Will monitor on telemetry and repeat levels. (3) COPD exacerbation Will keep on nebulizer therapy and steroids. Smoking cessation advised. (4) Lung mass Current Visit: Yes Status: Acute Assessment and plan: Noted on x-ray reportedly unchanged in comparison to prior images. This was biopsied in 2014 due to concern that it may have been malignant however it was seen to be fibrotic likely secondary to radiation. (5) DVT prophylaxis SubQ heparin ordered. Past Med Surg Social Fam HX - Past Medical History Medical history: cancer, CHF, COPD Additional medical history: Lyphoma cancer. Psychiatric history: no psych history - Past Surgical History Surgical History: orthopedic, other, other Additional surgical history: cervicle spine sx (steel plates, removed 4th vertibra) - Social History Smoking Status: Current every day smoker Smokeless Tobacco Status: No Alcohol use: occasionally Drug use: none - Family History Father Adopted: No Family Member Ethnicity: Non- Living Status: Hx Family Cardiac Disorders: Yes Hx Family Respiratory Disorders: Yes Hx Family Cancer: Yes Hx Family GI Disorders: No Hx Family Endocrine Disorder: No Hx Family Neuromuscular Disorders: No Hx Family Neurologic Disorders: No Hx Family HEENT Disorders: No Hx Family Autoimmune Disorders: No Internal Medicine - H&P: Meds Aspirin Enteric Coated [Aspirin EC] 81 mg PO DAILY #30 03/30/17 [Rx] Lisinopril [Zestril] 2.5 mg PO DAILY 08/11/18 [History] Furosemide [Lasix] 40 mg PO QAM #30 tablet 08/14/18 [Rx] Indapamide [Lozol] 2.5 mg PO QAM #30 tablet 08/14/18 [Rx] Allergy/AdvReac Type Severity Reaction Status Date / Time No Known Allergies Allergy Verified 11/05/18 23:10 All Systems PM: A 10-system review of systems was performed and is negative for pertinent findings except as documented above in the HPI. - Constitutional Vitals: Temp Pulse Resp BP Pulse Ox 97.4 F L 100 25 110/82 97 11/05/18 23:10 11/06/18 02:00 11/06/18 02:00 11/06/18 02:00 11/06/18 02:00 Exam: . Internal Med - H&P Results - Labs CBC & Chem 7: 11/06/18 00:43 11/06/18 00:43 Labs: Short CBC 11/06/18 Range/Units 00:43 WBC 7.6 (4.3-11.1) K/mcL Hgb 12.9 (12.9-16.9) g/dL Hct 39.9 (37.5-50.1) % Plt Count 177 (140-400) K/mcL Neutrophils # 5.9 (1.6-8.9) K/mcL BMP 11/06/18 00:43 Sodium 143 Potassium 4.0 Chloride 105 Carbon Dioxide 30 H BUN 26 H Creatinine 1.25 Glucose 104 Calcium 9.3 Cardiac Enzymes 11/06/18 Range/Units 00:43 Troponin I 0.05 H* (< 0.04) ng/mL - Impressions ITS Impressions Chest X-Ray 11/05/18 23:14 IMPRESSION: Mild pulmonary edema with small right pleural effusion. Superimposed infection could be present in the appropriate context. Stable left upper lung volume loss and consolidation. D/ / Thong Acosta / Thong Acosta Interpreting Provider: Thong Acosta - Time Spent With Patient Total time spent is greater than 50% in coordination of care (as documented) at patient's floor/unit and/or counseling patient: Greater than 35 minutes
[2018-11-06] MEDS: Ipratropium/Albuterol Neb 3 ML IH SCH ×4 (04:45→15:29)
[2018-11-06] MEDS: *HR* Heparin 5,000 UNIT/ML VIAL SQ SCH ×3 (04:59→20:42)
--- NOTE | 2018-11-06 06:37 | Emergency Department Note ---
Disposition Clinical Impression: Acute exacerbation of chronic obstructive airways disease, Acute on chronic systolic heart failure Disposition: Admitted As Inpatient Condition: Fair General Adult HPI - General Chief complaint: ED Shortness of Breath/Dyspnea Stated complaint: SOB Time Seen by Provider: 11/06/18 00:43 Source: patient Mode of arrival: ambulatory Limitations: no limitations Nursing Notes Reviewed: Yes Vital Signs Reviewed: Yes - History of Present Illness Pain Scale: 0 - Related Data Home Medications Medication Instructions Recorded Confirmed Lisinopril [Zestril] 2.5 mg PO DAILY 08/11/18 11/06/18 Previous Rx's Medication Instructions Recorded Aspirin Enteric Coated [Aspirin EC] 81 mg PO DAILY #30 03/30/17 Furosemide [Lasix] 40 mg PO QAM #30 tablet 08/14/18 Allergies Allergy/AdvReac Type Severity Reaction Status Date / Time No Known Allergies Allergy Verified 11/05/18 23:10 Past Medical History - Past Medical History Medical history: Reports: cancer, CHF, COPD Surgical history: Reports: orthopedic, other, other Psychiatric history: Reports: no psych history - Social History Smoking Status: Current every day smoker Smokeless Tobacco Status: No Alcohol use: Reports: occasionally Drug use: Reports: none Physical Exam - General Limitations: no limitations General appearance: alert Course Vital Signs Temperature 97.4 F L 11/05/18 23:10 Pulse Rate 104 11/05/18 23:10 Respiratory Rate 23 11/05/18 23:10 Blood Pressure 111/66 11/05/18 23:10 O2 Sat by Pulse Oximetry 89 11/05/18 23:10 Temperature 97.4 F L 11/06/18 04:30 Pulse Rate 99 11/06/18 04:30 Respiratory Rate 18 11/06/18 04:47 Blood Pressure 108/69 11/06/18 04:30 O2 Sat by Pulse Oximetry 96 11/06/18 04:47 Oxygen Delivery Oxygen Delivery Nasal Cannula Medical Decision Making - Medical Records Medical records reviewed: Yes I reviewed the patient's medical records. - Lab Data Lab results reviewed: Yes I reviewed the patient's lab results. Result diagrams: 11/06/18 00:43 11/06/18 00:43 Lab Results 11/06/18 11/06/18 11/06/18 Range/Units 00:43 00:43 00:43 WBC 7.6 (4.3-11.1) K/mcL RBC 3.69 L (4.19-5.50) M/mcL Hgb 12.9 (12.9-16.9) g/dL Hct 39.9 (37.5-50.1) % MCV 108.1 H (83.0-100.0) fL MCH 35.0 H (28.0-33.3) pg MCHC 32.3 (31.6-35.5) g/dL RDW 16.6 H (11.5-14.5) % Plt Count 177 (140-400) K/mcL MPV 10.2 (9.4-12.4) fL Immature Gran % 0.3 (0-4) % Seg Neutrophils % 78.1 % Lymphocytes % 8.9 % Monocytes % 10.3 % Eosinophils % 2.1 % Basophils % 0.3 % Neutrophils # 5.9 (1.6-8.9) K/mcL Lymphocytes # 0.7 (0.6-4.6) K/mcL Monocytes # 0.8 (0.0-1.3) K/mcL Eosinophils # 0.2 (0.0-0.6) K/mcL Basophils # 0.0 (0.0-0.2) K/mcL Sodium 143 (136-145) mEq/L Potassium 4.0 (3.5-5.1) mEq/L Chloride 105 (98-107) mEq/L Carbon Dioxide 30 H (23-29) mEq/L BUN 26 H (8-23) mg/dL Creatinine 1.25 (0.70-1.30) mg/dL Est GFR ( Amer) > 60 (> 60) Est GFR (Non-Af Amer) 56 L (> 60) BUN/Creatinine Ratio 21 (6-26) Glucose 104 (70-105) mg/dL Calculated Osmolality 301 H (280-300) Lactic Acid 0.8 (0.5-2.2) mmol/L Calcium 9.3 (8.6-10.3) mg/dL Troponin I 0.05 H* (< 0.04) ng/mL B-Natriuretic Peptide (Less than 100) pg/mL 11/06/18 Range/Units 00:43 WBC (4.3-11.1) K/mcL RBC (4.19-5.50) M/mcL Hgb (12.9-16.9) g/dL Hct (37.5-50.1) % MCV (83.0-100.0) fL MCH (28.0-33.3) pg MCHC (31.6-35.5) g/dL RDW (11.5-14.5) % Plt Count (140-400) K/mcL MPV (9.4-12.4) fL Immature Gran % (0-4) % Seg Neutrophils % % Lymphocytes % % Monocytes % % Eosinophils % % Basophils % % Neutrophils # (1.6-8.9) K/mcL Lymphocytes # (0.6-4.6) K/mcL Monocytes # (0.0-1.3) K/mcL Eosinophils # (0.0-0.6) K/mcL Basophils # (0.0-0.2) K/mcL Sodium (136-145) mEq/L Potassium (3.5-5.1) mEq/L Chloride (98-107) mEq/L Carbon Dioxide (23-29) mEq/L BUN (8-23) mg/dL Creatinine (0.70-1.30) mg/dL Est GFR ( Amer) (> 60) Est GFR (Non-Af Amer) (> 60) BUN/Creatinine Ratio (6-26) Glucose (70-105) mg/dL Calculated Osmolality (280-300) Lactic Acid (0.5-2.2) mmol/L Calcium (8.6-10.3) mg/dL Troponin I (< 0.04) ng/mL B-Natriuretic Peptide 2516 H (Less than 100) pg/mL - Radiology Data Radiology results reviewed: Yes I reviewed the patient's radiology results. Chest X-Ray 11/05/18 23:14 IMPRESSION: Mild pulmonary edema with small right pleural effusion. Superimposed infection could be present in the appropriate context. Stable left upper lung volume loss and consolidation. D/ / Thong Acosta / Thong Acosta Interpreting Provider: Thong Acosta - EKG Data EKG #1 EKG attestation: Yes I reviewed and interpreted this EKG. EKG results narrative: EKG showed sinus tachycardia with ventricular rate of 102. No acute ST segment elevation or depression. Prolonged QT with QTc of 502. Critical Care Time Critical Care Time: Yes Total Critical Care Time: 40 Attestation: Critical care performed: Time is exclusive of separately billable procedures. Time includes: direct pat ient care, patient reassessment, coordination of patient care, interpretation of data (laboratory data, radiology data, and respiratory data), review of patient's medical records, medical consultation and documentation of patient care. Procedures included in critical care time: Procedures excluded from critical care time: Attestation Statement - Attestation Attestation: I, Conor Jung MD, personally evaluated this patient and discussed their management with the resident physician. I reviewed the resident's note and agree with the documented findings, medical decision making, and plan of care. 73-year-old male presents to the emergency department with a complaint of increasing shortness of breath over the past few days. Increased cough with some yellow sputum. No fever. No chest pain but states it hurts to cough. Also complains of increased swelling of his legs. Patient has COPD and CHF. He does not use home oxygen. On examination patient is a well-developed well-nourished elderly male in mild respiratory distress. He is alert and oriented 3. There is no cyanosis or diaphoresis. Breath sounds are decreased bilaterally with diffuse tight bilateral inspiratory and expiratory wheezes. Heart regular with a mild tachycardia. Abdomen soft and nontender with normal bowel sounds. One plus pedal edema. EKG showed sinus tachycardia with ventricular rate of 102. No acute ST segment elevation or depression. Prolonged QT with QTc of 502. Chest x-ray shows mild pulmonary edema with small right pleural effusion. Labs reviewed. Troponin elevated at 0.05. BNP 2516. Patient received triple DuoNeb treatment and Solu-Medrol 125 mg IV. He also received Lasix 40 mg IV. The hospitalist, Dr. Figueroa, was consulted and accepted admission of the patient.
[2018-11-06] MEDS: predniSONE 20 MG TABLET PO SCH (08:32)
[2018-11-06] MEDS: Aspirin Enteric Coated 81 MG Tablet PO SCH (08:32)
[2018-11-06] MEDS: Furosemide 40 MG/4 ML VIAL IVP SCH ×2 (09:58→20:43)
--- NOTE | 2018-11-06 13:32 | Internal Med Progress Note ---
Hospitalist Progress Note - Encounter Date of Encounter: 11/06/18 Time of Encounter: 10:00 - Subjective Interval History: Mr. Jurado is a 73 year old M with known h/o COPD, not on home O2, who continues to smoke half a pack daily and has a history of lymphoma s/p chemo/radiation therapy with the complication of heart failure and localized lung fibrosis (b iopsy confirmed) and HTN pt presented to ER with complaints of shortness of breath over the past 3-4 days as well as increasing bilateral leg swelling. He had significant wheezing on exam so was given IV steroids and nebulizer therapy as well as 40mg furosemide. He is admitted for further care. Today he is more alert, awake and O x 3. Denied any CP. Still has moderate SOB and OROZCO. However overall feels little better today. His leg swelling also little better. He still on 2 lit O2. - Exam Vitals: Temp Pulse Resp BP Pulse Ox 97.4 F L 93 18 98/58 94 11/06/18 11:48 11/06/18 11:48 11/06/18 11:48 11/06/18 11:48 11/06/18 11:48 Exam: Gen: Alert, awake, Oriented to time,place and person Chest: Diminished breath sounds B/L, mild wheezing, No crackles, Rales+ Heart: S1S2+ RRR No murmurs Abd: Soft, NT, BS +, No organomegaly Ext:2+ edema, pulses are palpable, No calf tenderness Neuro : Benign findings Skin: No rash. - Assessment and Plan (1) Acute on chronic systolic heart failure Current Visit: Yes Status: Acute Assessment and Plan: Does have volume over load cont IV Lasix 40 mg BID cont close monitoring reviewed 2 D Echo from 08/12 showed LVEF 35-40% resumed all home meds held BP meds since pt's BP running little low Patient does need to stay in the hospital more than 2 midnights due to his complex medical problems. So we will change him to full admission today. I did review my colleague Dr. Banks's H & P including HPI, PMH, PSH, FH, SH, and ROS no changes noticed (2) Acute respiratory failure with hypoxia Current Visit: Yes Status: Acute Assessment and Plan: Multi factorial - due to acute CHF exacerbation + Mild COPD exacerbation cont IV diuresis and frequent bronchodilator therapy may need home O2 eval (3) COPD exacerbation Current Visit: No Status: Acute Assessment and Plan: He does have mild COPD exacerbation continue PO steroids continue frequent bronchodilator therapy will start him on Symbicort (4) DVT prophylaxis Current Visit: No Status: Acute (5) Pleural effusion Current Visit: No Status: Acute Assessment and Plan: Due to CHF exacerbation improving continue IV diuresis (6) Hypertension Current Visit: Yes Status: Acute Assessment and Plan: Blood pressure running little low will hold blood pressure medications for now continue close monitoring (7) Tobacco dependence Current Visit: Yes Status: Acute Assessment and Plan: [place] to quit smoking placed him on nicotine patches - Time Spent with Patient Total time spent is greater than 50% in coordination of care (as documented) at patient's floor/unit and/or counseling patient: Internal Medicine: Result - Labs CBC & Chem 7: 11/06/18 00:43 11/06/18 00:43 Labs: Short CBC 11/06/18 Range/Units 00:43 WBC 7.6 (4.3-11.1) K/mcL Hgb 12.9 (12.9-16.9) g/dL Hct 39.9 (37.5-50.1) % Plt Count 177 (140-400) K/mcL Neutrophils # 5.9 (1.6-8.9) K/mcL BMP 11/06/18 00:43 Sodium 143 Potassium 4.0 Chloride 105 Carbon Dioxide 30 H BUN 26 H Creatinine 1.25 Glucose 104 Calcium 9.3 Cardiac Enzymes 11/06/18 11/06/18 Range/Units 00:43 07:10 Troponin I 0.05 H* 0.03 (< 0.04) ng/mL - Impressions Impressions Chest X-Ray 11/05/18 23:14 IMPRESSION: Mild pulmonary edema with small right pleural effusion. Superimposed infection could be present in the appropriate context. Stable left upper lung volume loss and consolidation. D/ / Thong Acosta / Thong Acosta Interpreting Provider: Thong Acosta Consult Discharge Plan - Plan Referrals: Pepe Tate [Primary Care Provider] - 11/13/18 10:00 am (6) Hypertension Qualifiers: Hypertension type: essential hypertension Qualified Code(s): I10 - Essential (primary) hypertension
[2018-11-06] MEDS: Nicotine 14 MG PATCH.TD24 TD SCH (14:42)
--- NOTE | 2018-11-06 16:46 | Electrocardiograph Report ---
[place] [id number] Test Date: 2018-11-06 Pat Name: Praveen Jurado Department: [id number] Room: 3B37 Gender: M [employer]: : [id number] Requested By: Conor Jung Order Number: [id number] Reading MD: Shon Johnson Measurements Intervals [place] Rate: 102 P: 100 RI: 152 QRS: -2 QRSD: 119 T: 113 QT: 385 QTc: 502 Interpretive Statements Sinus tachycardia Probable LVH with secondary repol abnrm Prolonged QT interval Electronically Signed On 11-06-2018 16:44:49 EDT by Shon Johnson
[2018-11-07] MEDS: *HR* Heparin 5,000 UNIT/ML VIAL SQ SCH (05:16)
[2018-11-07 05:20] LABS: BUN/Creatinine Ratio 23 (6-26); Blood Urea Nitrogen 29 mg/dL (8-23); Calcium 9.1 mg/dL (8.6-10.3); Carbon Dioxide 32 mEq/L (23-29); Chloride 100 mEq/L (98-107); Glucose 138 mg/dL (70-105); Magnesium 1.8 mg/dL (1.6-2.6); Osmolality,Calculated 302 (280-300); Potassium 3.4 mEq/L (3.5-5.1); Sodium 142 mEq/L (136-145); eGFR For Non-African Americans 56 (> 60)
[2018-11-07 08:18] VITALS: BP 93/48
[2018-11-07] MEDS: Furosemide 40 MG/4 ML VIAL IVP SCH (09:03)
[2018-11-07] MEDS: predniSONE 20 MG TABLET PO SCH (09:05)
[2018-11-07] MEDS: Aspirin Enteric Coated 81 MG Tablet PO SCH (09:05)
[2018-11-07] MEDS: Nicotine 14 MG PATCH.TD24 TD SCH (09:05)
--- NOTE | 2018-11-07 10:32 | Discharge Summary ---
- NOTES TO OUTPATIENT PROVIDER Notes to Outpatient Provider: f/u with PCP in one week. f/u with Cardiology in 2-3 weeks. Please quit smoking. Please check dialy weights, If you gain more than 2 lbs and feel more short of breath take an extra dose of lasix. Date of Encounter: 11/07/18 Time of Encounter: 10:32 - Discharge Diagnosis (1) Acute on chronic systolic heart failure Priority: Primary Status: Acute (2) Acute respiratory failure with hypoxia Priority: Primary Status: Acute (3) COPD exacerbation Priority: Primary Status: Acute (4) DVT prophylaxis Priority: Secondary Status: Acute (5) Pleural effusion Priority: Secondary Status: Acute (6) Hypertension Priority: Secondary Status: Acute Qualifiers: Hypertension type: essential hypertension Qualified Code(s): I10 - Essential (primary) hypertension (7) Tobacco dependence Priority: Secondary Status: Acute Hospital course: Mr. Jurado is a 73 year old M with known h/o COPD, not on home O2, who continues to smoke half a pack daily and has a history of lymphoma s/p chemo/radiation therapy with the complication of heart failure and localized lung fibrosis (biopsy confirmed) and HTN pt presented to ER with complaints of shortness of breath over the past 3-4 days as well as increasing bilateral leg swelling. He had significant wheezing on exam so was given IV steroids and nebulizer therapy as well as 40mg furosemide. He was in the hospital placed on monitor worker. With IV diuresis his symptoms improved. Initially he was hypoxic, he does have mild COPD exacerbation too. With IV diuresis and systemic steroid therapy he feels better today. He is taking comfortably on room air. He wanted to go home today. I did relationship counselor the patient to quit smoking. Also recommend him to check daily weights, if he gain more than 2 pounds take an extra dose of Lasix. He did well with ambulating pulse oxy study too. He did not qualify for Oxygen. - Time Spent with Patient Total time spent providing and/or coordinating discharge services: - Discharge Medications Prescriptions: New Nicotine Patch [Nicoderm] 14 mg TD DAILY #30 patch.td24 predniSONE [PredniSONE] 40 mg PO DAILY #10 tablet Continue Aspirin Enteric Coated [Aspirin EC] 81 mg PO DAILY #30 Lisinopril [Zestril] 2.5 mg PO DAILY Albuterol Sulfate [Albuterol Inhaler] 2 puff IH Q6HR PRN PRN Reason: Shortness Of Breath Furosemide [Lasix] 20 mg PO QAM Home Medications: Aspirin Enteric Coated [Aspirin EC] 81 mg PO DAILY #30 03/30/17 [Rx] Lisinopril [Zestril] 2.5 mg PO DAILY 08/11/18 [History] Albuterol Sulfate [Albuterol Inhaler] 2 puff IH Q6HR PRN 11/06/18 [History] Furosemide [Lasix] 40 mg PO DAILY #30 tablet 11/07/18 [Rx] Nicotine Patch [Nicoderm] 14 mg TD DAILY #30 patch.td24 11/07/18 [Rx] predniSONE [PredniSONE] 40 mg PO DAILY #10 tablet 11/07/18 [Rx] Allergies/Adverse Reactions: Allergy/AdvReac Type Severity Reaction Status Date / Time No Known Allergies Allergy Verified 11/05/18 23:10 Date of admission: 11/06/18 03:23 Primary care physician: Pepe Tate Consults: 11/06/18 08:48 Consult to Nurse Navigator [CONS] Routine Comment: COPD, CHF - Constitutional Vitals: Temp Pulse Resp BP Pulse Ox 97.8 F 99 17 93/48 94 11/07/18 08:13 11/07/18 08:13 11/07/18 08:13 11/07/18 08:13 11/07/18 08:13 General appearance: Present: A&O X 3, no acute distress, answers questions appropriately Exam: Gen: Alert, awake, Oriented to time,place and person Chest: Diminished breath sounds B/L, mild wheezing, No crackles, No rales Heart: S1S2+ RRR No murmurs Abd: Soft, NT, BS +, No organomegaly Ext: Trace edema, pulses are palpable, No calf tenderness Neuro : Benign findings Skin: No rash. - Patient Status Disposition: Home, Self-Care Condition: Good Overall status at discharge: patient is back to baseline - Discharge Instructions Follow Up With: Pepe Tate [Primary Care Provider] - 11/13/18 10:00 am - Diet and Activity Activity: increase activity as tolerated Diet: low salt diet
== END 2018-11-07 11:05 | disposition home or self-care (01) ==
LOC: 3BNU 23:02 → EMEROOARM 23:02 → SUATTDRO 11-06 03:23 → 3BNU 11-06 04:18
PROVIDERS: ADMIT Internal Medicine; ATTEND Family Medicine